=== PATIENT | female | born 1950 | race Caucasian/White ===

== ENCOUNTER → 2018-09-25 | Outpatient (CLI) | payer OTHER ==
[~2018-09-25] MED LIST: DIOVAN320 MG PO; LEVEMIR100 UNIT/1 SUBQ; NAPROSYN500 MG PO; NORVASC5 MG PO; NOVOLOG100 UNIT/1 SUBQ; PRAVACHOL40 MG PO; SYNTHROID112 MC1 PO; TRULICITY0.75 MG/0. SUBQ
== END ==
LOC: M.MRI
DX: S83.241A Other tear of medial meniscus, current injury, right knee, initial encounter (principal); M17.11 Unilateral primary osteoarthritis, right knee; M25.761 Osteophyte, right knee; X58.XXXA Exposure to other specified factors, initial encounter; Y93.89 Activity, other specified; Y92.89 Other specified places as the place of occurrence of the external cause; Y99.8 Other external cause status

== ENCOUNTER 2018-10-17 08:28 | Inpatient (IN) | payer OTHER ==
[2018-10-05 09:28] LABS: URINE BILIRUBIN NEGATIVE (Negative); URINE BLOOD NEGATIVE (Negative); URINE CLARITY CLEAR; URINE COLOR YELLOW; URINE GLUCOSE-RANDOM NEGATIVE (Negative); URINE KETONES NEGATIVE (Negative); URINE LEUKOCYTES-REFLEX 1+ (Negative); URINE NITRITE-REFLEX NEGATIVE (Negative); URINE PROTEIN NEGATIVE (Negative)
[2018-10-05 09:33] LABS: HEMATOCRIT 42.6 % (37.0-47.0); HEMOGLOBIN 14.3 gm/dL (12.0-15.0); MCH 28.4 pg (26.0-34.0); MCHC 33.5 g/dL (28.0-37.0); MCV 84.5 fL (80.0-100.0); MPV 6.4 fl. (7.2-11.1); RBC 5.04 mil/uL (4.20-5.00); RDW-CV 14.4 % (10.5-14.5); WBC 11.4 thou/uL (4.0-11.0)
[2018-10-05 09:47] LABS: ALBUMIN 3.9 g/dL (3.4-5.0); CALCIUM 9.4 mg/dL (8.5-10.1); CREATININE 0.8 mg/dL (0.6-1.3); POTASSIUM 3.9 mmol/L (3.5-5.1); TOTAL BILIRUBIN 0.7 mg/dL (<0.1-1.0); TOTAL PROTEIN 8.6 g/dL (6.4-8.2)
[2018-10-05 09:50] LABS: SQUAMOUS 4-10 Moderate /LPF (0-3); URINE RBC None Seen /HPF (0-2); URINE WBC-REFLEX 0-5 Rare /HPF (0-5)
[2018-10-05 09:51] LABS: BACTERIA-REFLEX 1-9 Few /HPF (None Seen); CASTS None Seen /LPF (None Seen); CRYSTALS None Seen /LPF (None Seen); MUCUS None Seen strn/LPF (None Seen)
[2018-10-05 10:03] LABS: INR 0.9; PROTIME 9.7 Seconds (9.20-11.50)
--- NOTE | 2018-10-05 14:51 | EKG ---
[place] [address] ELECTROCARDIOGRAM REPORT Name: LINSEY CIFUENTES Room: PRE IN [facility]#: [id number] Admission: Attend Phys: Mal Edwards Discharge: Date of : 48 Report #: [id number] THIS REPORT FOR: //name// [facility] Test Date: 2018-10-05 Test Time: 11:06:20 Pat Name: LINSEY CIFUENTES Department: Room: Gender: F Carpenter Foreman: AKIL : 1950 Requested By: Nico Scott Order Number: [id number] Reading MD: Edgardo Bro Measurements Intervals [place] Rate: 85 P: 9 [place]: 150 QRS: 132 QRSD: 131 T: -10 QT: 406 QTc: 483 Interpretive Statements Sinus rhythm RBBB and LPFB No previous ECG available for comparison Electronically Signed On 10-05-2018 14:51:10 CDT by Edgardo Bro [email or web address] <ELECTRONICALLY SIGNED> By: Edgardo Bro MD, [facility] 10/05/18 1451 1106 [id number] Edgardo Bro MD, FACC /EPI
[~2018-10-17] VITALS: Ht 149.9 cm; Wt 83.9 kg
[2018-10-17 09:00] VITALS: BP 121/66
[2018-10-17 15:30] VITALS: BP 148/71
[2018-10-17 16:30] VITALS: BP 135/90
[2018-10-17 20:30] VITALS: BP 109/69
[2018-10-18] VITALS: BP 119/57
[2018-10-18 04:04] VITALS: BP 127/56
[2018-10-18 04:14] LABS: HEMATOCRIT 35.6 % (37.0-47.0); HEMOGLOBIN 11.9 gm/dL (12.0-15.0)
[2018-10-18 08:50] VITALS: BP 124/56
[2018-10-18 19:57] VITALS: BP 104/55
[2018-10-19] VITALS: BP 100/58
[2018-10-19 04:00] VITALS: BP 129/45
[2018-10-19 04:02] LABS: HEMATOCRIT 30.3 % (37.0-47.0); HEMOGLOBIN 10.1 gm/dL (12.0-15.0)
[2018-10-19 07:39] VITALS: BP 86/46
[2018-10-19 09:42] VITALS: BP 86/46
[2018-10-19 15:16] LABS: ABSOLUTE BASOPHILS 0.1 thou/uL (0.0-0.2); ABSOLUTE EOSINOPHILS 0.2 thou/uL (0.0-0.7); ABSOLUTE LYMPHOCYTES 2.7 thou/uL (0.8-5.3); ABSOLUTE MONOCYTES 1.2 thou/uL (0.0-1.2); ABSOLUTE NEUTROPHILS 9.7 thou/uL (1.6-8.1); BASOPHILS 0.4 %; EOSINOPHILS 1.5 %; HEMATOCRIT 32.2 % (37.0-47.0); HEMOGLOBIN 10.8 gm/dL (12.0-15.0); LYMPHOCYTES 19.3 %; MCH 28.4 pg (26.0-34.0); MCHC 33.6 g/dL (28.0-37.0); MCV 84.7 fL (80.0-100.0); MONOCYTES 8.6 %; MPV 6.7 fl. (7.2-11.1); NUCLEATED RBCS 0 /100WBC; PLATELET COUNT* 311 thou/uL (150-400); POLYS 70.2 %; RDW-CV 13.7 % (10.5-14.5); WBC 13.8 thou/uL (4.0-11.0)
[2018-10-19 15:36] LABS: ALBUMIN 3.1 g/dL (3.4-5.0); CALCIUM 8.6 mg/dL (8.5-10.1); CREATININE 0.8 mg/dL (0.6-1.3); POTASSIUM 3.9 mmol/L (3.5-5.1); TOTAL BILIRUBIN 0.5 mg/dL (<0.1-1.0); TOTAL PROTEIN 6.7 g/dL (6.4-8.2)
[2018-10-19 15:53] LABS: URINE BILIRUBIN NEGATIVE (Negative); URINE BLOOD NEGATIVE (Negative); URINE CLARITY CLEAR; URINE COLOR YELLOW; URINE GLUCOSE-RANDOM NEGATIVE (Negative); URINE KETONES NEGATIVE (Negative); URINE LEUKOCYTES-REFLEX NEGATIVE (Negative); URINE NITRITE-REFLEX NEGATIVE (Negative); URINE PROTEIN NEGATIVE (Negative); URINE SPECIFIC GRAVITY <= 1.005 (1.005-1.030); URINE UROBILINOGEN 0.2 E.U./dl (0.2-1.0)
[2018-10-19 16:36] LABS: ESR (SEDRATE) 47 mm/hr (0-30)
[2018-10-19 16:41] VITALS: BP 86/55
[2018-10-19 20:20] VITALS: BP 88/41
[2018-10-20] VITALS: BP 115/59
[2018-10-20 04:00] VITALS: BP 103/48
[2018-10-20 08:20] VITALS: BP 115/58
[2018-10-20] MEDS ORDERED: XARELTO10 MG PO (12:24)
[2018-10-20] MEDS ORDERED: NORCO 5-325 TA1 EACH PO (12:27)
[2018-10-20 12:28] VITALS: BP 86/46
[2018-10-20] MEDS ORDERED: ZOFRAN ODT4 MG DISSOLVE (12:28)
[2018-10-20 13:25] VITALS: BP 86/46
[2018-10-20 15:20] VITALS: BP 86/46
--- NOTE | 2018-10-21 16:33 | CON ---
[address] [address] CONSULTATION Name: LINSEY CIFUENTES Room: [address] IN M.R.#: [id number] Admission: 10/17/18 Attend Phys: Mal Edwards Discharge: 10/20/18 Date of : 48 Report #: [id number] THIS REPORT FOR: //name// CC: Nico Sainz DATE OF SERVICE: 10/19/2018 NEUROLOGY CONSULTATION HISTORY OF PRESENT ILLNESS: The patient is a 67-year-old female who is complaining of blurry vision today. A neurology consult was requested for stroke. The patient is postop having had a right knee replacement. Yesterday, the patient had dizziness. Today, she has blurry vision. The patient typically wears glasses. Without her glasses, her vision is blurry. When she puts her glasses on, she has no blurry vision when she looks in the distance, but has blurry vision when she tries to look close up. The patient has no other neurologic complaints. She does not have headache, double vision, difficulty speaking or swallowing, vertigo, lightheadedness, unilateral weakness, numbness or tingling. The patient has been orthostatic. Her most recent blood pressure was 86/46. The patient has also been receiving pain medication. She has had since 9:00 p.m. yesterday a total of 30 mg of oxycodone. PAST MEDICAL HISTORY: Hypothyroidism, hypertension, hyperlipidemia, arthritis, diabetes. PAST SURGICAL HISTORY: Left total knee, partial hysterectomy and cholecystectomy. MEDICATIONS AT HOME: Levothyroxine 112 mcg daily, valsartan 320 mg daily, amlodipine 5 mg b.i.d., pravastatin 40 mg daily, naproxen 500 mg b.i.d., Trulicity 0.75 mg weekly, NovoLog and Levemir. ALLERGIES TO MEDICATIONS: None. PHYSICAL EXAMINATION: VITAL SIGNS: Blood pressure 86/46, temperature 36.6, pulse rate 61, respiratory rate 15, bedside pulse oximetry 98% on 2 liters. NEUROLOGIC: Cranial nerves 2-12 are grossly intact. The patient has 20/20 vision when she looks to the distance, but has some slight blurring of the vision when she looks up close or at arm's length. Motor exam demonstrates symmetrical strength in all 4 extremities with the exception of the right lower extremity, which was not checked because she is postop. There is no [place] [address] CONSULTATION Name: LINSEY CIFUENTES Room: [address]#: [id number] Admission: 10/17/18 Attend Phys: Mal Edwards Discharge: 10/20/18 Date of : 48 Report #: [id number] LABORATORY DATA: Hematology: White blood cell count 11.4, hemoglobin 10, hematocrit 30, MCV 84.5 and platelet count 326,000. Urinalysis: Leukocyte esterase 1+. Chemistry: Sodium 141, potassium 3.9, chloride 102, carbon dioxide 28, BUN 25, creatinine 0.8, glucose 107. IMPRESSION: The patient has not had recent lab work and I would check the patient's chemistry profile to make sure that she does not have hyponatremia that might cause blurry vision. The patient's pressure was also quite low, so I would be very careful about giving her home blood pressure medications. I would also be very careful about giving this patient narcotics. Since 9:00 p.m. yesterday, she has had a total of 30 mg of oxycodone. It takes approximately 20 hours for 1 tablet of oxycodone to be completely eliminated from the body. If there are any changes in the patient's status, please call me. Otherwise, I will check on her tomorrow, but will look for her lab results this afternoon. <ELECTRONICALLY SIGNED> By: Eugenie Moore DO 10/21/18 1633 1420 [id number] Moore DO /nt
--- NOTE | 2018-10-23 09:45 | OP ---
[facility] [address] [place] [address] OPERATIVE REPORT Name: LINAJOSELINSEY BARBARA Room: [address] IN M.R.#: [id number] Admission: 10/17/18 Attend Phys: Mal Edwards Discharge: 10/20/18 Date of : 48 Report #: [id number] THIS REPORT FOR: //name// CC: Nico Sainz DATE OF SERVICE: 10/17/2018 PREOPERATIVE DIAGNOSIS: Right knee osteoarthritis. POSTOPERATIVE DIAGNOSIS: Right knee osteoarthritis. PROCEDURE: Right total knee arthroplasty. SURGEON: Nico Scott II, DO. STAGECRAFT TEACHER: INDU Lemus. ANESTHESIA: LMA. ESTIMATED BLOOD LOSS: 50 mL. ANTIBIOTICS: Ancef preoperatively. DRAINS: Medium Hemovac. COMPLICATIONS: None. CONDITION: The patient is stable to recovery room. IMPLANTS: Listed in the operative record and progress note. BRIEF HISTORY: The patient is seen in the preoperative area. Preoperative H and P was performed. Site was marked, questions were answered. Risks and benefits were discussed with the patient in detail about surgery. The patient wished to proceed assuming all risks. DESCRIPTION OF PROCEDURE: The patient was taken to the operative suite and placed supine on the operative table and given appropriate anesthesia. A well-padded tourniquet was applied to the upper thigh, which was inflated to 300 mmHg after gravity exsanguination. The operative knee was sterilely prepped and draped. Surgery began by midline incision. This was carried down to the subcutaneous tissues. A medial parapatellar arthrotomy was performed and carried down to bone. The patella was then everted and excess soft tissues were removed from around the femur. The femoral cutting block was then applied, [facility] [address] [place] [address] OPERATIVE REPORT Name: LINSEY CIFUENTES Room: [address] IN ..#: [id number] Admission: 10/17/18 Attend Phys: Mal Edawrds Discharge: 10/20/18 Date of : 48 Report #: [id number] checked with a drop luis alberto for rotational alignment, pinned in appropriate position and appropriate cuts were made. A 4-in-1 cutting block was then applied, checked for rotational alignment in the appropriate position and appropriate cuts were made. The tibia was then exposed. Excess meniscus was removed. Retractor was placed on the collateral ligaments. The tibial cutting block was then applied in appropriate position, checked with drop luis alberto for rotational alignment and slope and appropriate cut was made. The tibial bone was removed. Tibial base plate was then applied and checked for rotational alignment with the drop luis alberto and pinned into appropriate position. The femur was then applied. A box cut was reamed. This was then trialed with appropriate spacer, which showed excellent fit and fill and excellent stability of the knee throughout all range of motion. The patella was reamed in appropriate fashion and sized for appropriate size. Three peg holes were drilled, and it was then trialed and shown to have excellent flexion and extension and excellent tracking of the patella within the groove. These trials were removed. The tibia was punched in appropriate fashion. Bone ends were cleansed with Pulsavac irrigation and cement was mixed and applied to the final implants. These were then malleted into position and held the knee in extension and compressed to allow the cement to cure. After it cured, excess was removed using [place] and osteotome. The wound was then copiously irrigated, and the final spacer was then malleted in position. Tourniquet was deflated. Hemostasis was obtained with electrocautery. A pain cocktail was injected. PRP gel was sprayed through internal aspects of the knee. Medium Hemovac drain was applied. The capsule was closed with 2 FiberWire and 1 Vicryl in [id number] fashion. Skin was closed with 2-0 Vicryl and running 3-0 Monocryl. Dermabond and sterile dressing applied. Julien wrap and PolarCare applied. The patient was transported to the recovery room in stable condition. Counts were correct throughout the procedure. <ELECTRONICALLY SIGNED> By: Nico Scott II, DO 10/23/18 0945 0723 [id number] Scott II, DO /nt
== END 2018-10-20 15:22 | disposition home health service (06) | DRG 470 ==
LOC: M.PRE → M.TBA 08:28 → M.ORTHSURG 08:28 → M.PRE 08:48 → M.ORTHSURG 12:02 → M.PRE 14:03 → M.ORTHSURG 10-20 15:22
PROVIDERS: Internal Medicine; Orthopaedic Surgery; Psychiatry & Neurology Neurology; ADMIT Internal Medicine
PROC: 0SRC0J9 Replacement of Right Knee Joint with Synthetic Substitute, Cemented, Open Approach (ICD-10-PCS; principal; 2018-10-17)
DX: M17.11 Unilateral primary osteoarthritis, right knee (principal); E03.9 Hypothyroidism, unspecified; E78.5 Hyperlipidemia, unspecified; E11.65 Type 2 diabetes mellitus with hyperglycemia; H53.8 Other visual disturbances; I95.9 Hypotension, unspecified; Z90.711 Acquired absence of uterus with remaining cervical stump; Z90.49 Acquired absence of other specified parts of digestive tract; Z83.3 Family history of diabetes mellitus